=== PATIENT | male | born 1980 | race Caucasian/White ===

== ENCOUNTER → 2018-12-16 08:41 | Outpatient (CLI) | payer OTHER, SELFPAY ==
[2018-12-19 03:07] LABS: QNTFERON TB Mitogen Value > 10.00 IU/mL (.); QNTFERON TB Nil Value 0.07 IU/mL (.); QNTFERON TB1+ Ag Value 0.05 IU/mL (.); QNTFERON TB2+ Ag Value 0.06 IU/mL (.)
[2018-12-21 09:11] LABS: QNTIFERON TB Positive Criteria Negative (Negative)
--- OUTSIDE RECORDS SUMMARY | 2019-02-17 04:53 | XMS RPT_ITS ---
:1980 Author Organization [facility] Care Team Providers Name Role Phone Vellanki, Evelyn Attending Unavailable Vellanki, Evelyn Referring Unavailable Arana, Singh Primary Care Unavailable EMMA BENAVIDEZ (ELECTROMEDICAL EQUIPMENT TECHNICIAN) Attending Unavailable LEACH, JESUS K Attending Unavailable OSIRIS DANIELLE Referring Unavailable JAGDEEP IVAN (OD) Attending Unavailable LEACH, JESUS K Referring Unavailable MEFJAGDEEP LOPEZ (OD) Attending Unavailable MEFJAGDEEP LOEPZ (OD) Referring Unavailable Vellanki, Evelyn Admitting Unavailable Vellanki, Evelyn Attending Unavailable Arana, Christopher Primary Care Unavailable Arana, Christopher Consulting Unavailable Arana, Christopher Primary Care Unavailable Vellanki, Evelyn Admitting Unavailable Vellanki, Evelyn Attending Unavailable Arana, Christopher Consulting Unavailable Furness, Dominic T Attending Unavailable Arana, Christopher Primary Care Unavailable Furness, Dominic T Attending Unavailable Arana, Christopher Primary Care Unavailable Vellanki, Evelyn Admitting Unavailable Vellanki, Evelyn Attending Unavailable Arana, Christopher Primary Care Unavailable Arana, Christopher Consulting Unavailable Wood, Augustina L Admitting Unavailable Wood, Augustina L Attending Unavailable Arana, Christopher Primary Care Unavailable Wood, Augustina L Admitting Unavailable Wood, Augustina L Attending Unavailable Arana, Christopher Primary Care Unavailable Wood, Augustina L Admitting Unavailable Augustina Steen L Attending Unavailable Arana, Dane Primary Care Unavailable Velkatherine, Evelyn Admitting Unavailable Elochay Evelyn Attending Unavailable Sumit, Dane Primary Care Unavailable Arana, Dane Admitting Unavailable Arana, Dane Attending Unavailable Arana, Dane Primary Care Unavailable PROBLEMS PROBLEMS DATE TYPE CONDITION / CODE ATTENDING STATUS SOURCE 12/16/2018 Unknown 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 - Evelyn Hough Active [facility] arthritis with Hospital rheumatoid factor Repository of unspecified site without organ or systems involvement / M05.70(ICD-10) 12/16/2018 Unknown 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 / Repository Z79.899(ICD-10) 12/16/2018 Unknown I34.1 - Evelyn Hough Active [facility] Nonrheumatic Counts Include [address] [facility] mitral (valve) Hospital prolapse / Repository I34.1(ICD-10) 12/16/2018 Unknown I26.99 - Other Evelyn Hough Active [facility] pulmonary embolism Community without acute cor Hospital pulmonale / Repository I26.99(ICD-10) 12/16/2018 Unknown Z86.718 - Personal Evelyn Hough Active [facility] history of other Community venous thrombosis Hospital and embolism / Repository Z86.718(ICD-10) 12/16/2018 Unknown K76.0 - Fatty Evelyn Hough Active [facility] (change of) liver, Community not elsewhere Hospital classified / Repository K76.0(ICD-10) PROCEDURES PROCEDURES No Procedure Records FoundRESULTS RESULTS QUANTIFERON TB-GOLD+ Collected: 12/16/2018 Status: F Source: [facility] TYPE CODE TESTS RESULT OUT OF RANGE REFERENCE UNITS LAB L3400.8025 . Normal QFT TB Comment GOLD Result Comment: The QuantiFERON-TB Gold Plus result is determined by subtracting the Nil value from either TB antigen (Ag) tube. The mitogen tube serves as a control for the test. LAB L3400.8035 . IU/mL Normal QFT TB1+ AG 0.05 [facility] LAB L3400.8045 . IU/mL Normal QFT TB2+ AG 0.06 [facility] LAB L3400.8055 . IU/mL Normal QFT NIL VALUE 0.07 LAB L3400.8065 . IU/mL Normal QFT MITOGEN > 10.00 [facility] LAB L3400.8075 Negative Normal QFT TB POS Negative CRIT Result Comment: The specimen received for QuantiFERON testing was incubated by the ordering institution. Specific procedures outlined in our Directory of Services and in the package insert for the QuantiFERON Gold (In Tube) test must be followed to enable for proper stimulation of cells for the production of interferon gamma. Performed at: [facility] [id number] Clinical Data Programmer: Anand Turner PhD, Phone: [phone] Performed By: #### L3400.8000 #### [facility] (refer to report for specific site) refer to report for address and phone number PT/INR POC ORDER Collected: 12/09/2018 Status: F Source: [facility] 1:04 PM [facility] REPOSITORY TYPE CODE TESTS RESULT OUT OF RANGE REFERENCE UNITS LAB CD:[id number] 673(LOINC) Normal Collected PT/INR POC Order Performed By: #### [id number] #### [facility] POC Subsection [facility] [place] [address] PT/INR CAPILLARY Collected: 12/09/2018 Status: F Source: [facility] 1:04 PM [facility] REPOSITORY TYPE CODE TESTS RESULT OUT OF RANGE REFERENCE UNITS LAB [id number](LO 8.0-11.0 second(s) INC) High PT POC 24.0 LAB [id number](LO 1.0-1.2 INC) High INR POC 2.1 Result Comment: Source Capillary Performed By: #### [id number] #### [facility] POC Subsection [facility] [place] [address] CBC W/ AUTO DIFF Collected: 11/19/2018 Status: F Source: [facility] 3:18 PM [facility] REPOSITORY TYPE CODE TESTS RESULT OUT OF RANGE REFERENCE UNITS LAB [id number](L 3.6-11.0 E3/mcL OINC) Normal WBC 4.9 LAB [id number](L 3.90-6.10 E6/mcL OINC) Normal RBC 5.13 LAB [id number](L 13.5-18.0 G/DL OINC) Normal Hgb 15.6 LAB 40224485(L 42.0-52.0 % OINC) Normal Hct 45.3 LAB 05061685(L 11.5-14.5 % OINC) Normal RDW 12.8 LAB 71958812(L 27.0-31.0 pg OINC) Normal MCH 30.4 LAB 42713911(L 33.0-37.0 G/DL OINC) Normal MCHC 34.4 LAB 63879354(L 78.0-100.0 fL OINC) Normal MCV 88.4 LAB 74018372(L 7.4-11.0 fL OINC) Normal MPV 8.5 LAB 23236294(L 130-400 E3/mcL OINC) Normal Platelet 226 Performed By: #### [id number] #### [facility] Lerma[employer] [address] [place], [place] [id number] AUTO DIFF Collected: 11/19/2018 Status: F Source: [facility] 3:18 PM [facility] REPOSITORY Order Comment: Order Added by Discern Expert. TYPE CODE TESTS RESULT OUT OF RANGE REFERENCE UNITS LAB [id number](L 37.0-75.0 % OINC) Normal Neutro Auto 47.4 LAB 05801687(L 20.0-55.0 % OINC) Normal Lymph Auto 43.3 LAB 52429513(L 0.0-10.0 % OINC) Normal [place] Auto 6.7 LAB 45607727(L 0.0-11.0 % OINC) Normal Eos Auto 2.0 LAB 80215039(L 0.0-2.0 % OINC) Normal Basophil Auto 0.6 LAB 69326785(L 1.4-6.5 E3/mcL OINC) Normal Neutro 2.3 Absolute LAB 23764396(L 1.2-3.4 E3/mcL OINC) Normal Lymph Absolute 2.1 LAB 89538609(L 0.0-0.7 E3/mcL OINC) Normal [place] Absolute 0.3 LAB 88941604(L 0.0-0.7 E3/mcL OINC) Normal Eos Absolute 0.1 LAB 14021172(L 0.0-0.2 E3/mcL OINC) Normal Basophil 0.0 Absolute Performed By: #### [id number] #### OMID RemHemo [facility] [place] [address] CMP Collected: 11/19/2018 Status: F Source: [facility] 3:18 PM [facility] REPOSITORY TYPE CODE TESTS RESULT OUT OF RANGE REFERENCE UNITS LAB 83647745(L 70-99 mg/dL OINC) Glucose Normal Lvl 90 LAB 95495214(L 6-23 mg/dL OINC) BUN Normal 16 LAB 9741816(LO 0.5-1.3 mg/dL INC) Normal Creatinine 1.0 LAB 81009717(L 8.6-10.3 mg/dL OINC) Calcium Normal Lvl 9.8 LAB 75177212(L 136-145 mEq/L OINC) Sodium Normal Lvl 139 LAB 66915931(L 3.5-5.3 mEq/L OINC) Normal Potassium Lvl 3.9 LAB 90997794(L 98-107 mEq/L OINC) Chloride Normal 105 LAB 90148665(L 21.0-32.0 mEq/L OINC) CO2 Normal 29.0 LAB 30488736(L 33-120 Int._Unit/ OINC) L Alk Phos Normal 66 LAB 94092472(L 0.00-1.20 mg/dL OINC) Bili Normal Total 0.93 LAB 07243472(L 3.4-5.0 gm/dL OINC) Albumin Normal Lvl 4.9 LAB 24356444(L 6.4-8.2 gm/dL OINC) Total Normal Protein 6.6 LAB 35164535(L 10-52 Int._Unit/ OINC) High L ALT 66 LAB 19998884(L 9-39 Int._Unit/ OINC) L AST Normal 32 LAB 41143592(L 5.4-30.0 ratio OINC) Normal BUN/Creat Ratio 16.0 LAB 87297007(L 10-20 mEq/L OINC) Low AGAP 9 LAB 34730904(L 2.0-4.0 G/DL OINC) Globulin Normal 2.0 LAB 56311238(L 1.1-1.9 ratio OINC) High A/G Ratio 2.9 Performed By: #### [id number] #### OM[facility] [employer] [address] [place] [address] EGFR Collected: 11/19/2018 Status: F Source: [facility] 3:18 PM [facility] REPOSITORY Order Comment: Order added by Discern Expert. TYPE CODE TESTS RESULT OUT OF RANGE REFERENCE UNITS LAB 81763471(LO mL/min/1.73 INC) m2 Normal eGFR >60 LAB 58153524(LO mL/min/1.73 INC) m2 Normal eGFR AA >60 Performed By: #### [id number] #### [facility] [employer] [address] [place] [address] PT/INR POC ORDER Collected: 11/11/2018 Status: F Source: [facility] 1:[address] [facility] REPOSITORY TYPE CODE TESTS RESULT OUT OF RANGE REFERENCE UNITS LAB CD:[id number] 673(LOINC) Normal Collected PT/INR POC Order Performed By: #### [id number] #### [facility] POC Subsection [address] [place] [address] PT/INR CAPILLARY Collected: 11/11/2018 Status: F Source: [facility] 1:[address] [facility] REPOSITORY TYPE CODE TESTS RESULT OUT OF RANGE REFERENCE UNITS LAB [id number](LO 8.0-11.0 second(s) INC) High PT POC 28.0 LAB 86120433(LO 1.0-1.2 INC) High INR POC 2.4 Result Comment: Source Capillary Performed By: #### [id number] #### [facility] POC Subsection [address] [place] [address] PT/INR CAPILLARY Collected: 10/28/2018 Status: F Source: [facility] 1:13 PM [facility] REPOSITORY TYPE CODE TESTS RESULT OUT OF RANGE REFERENCE UNITS LAB [id number](LO 8.0-11.0 second(s) INC) High PT POC 41.0 LAB [id number](LO 1.0-1.2 INC) High INR POC 3.6 Result Comment: Source Capillary Performed By: #### [id number] #### OM[facility] POC Subsection [address] [place] [address] PT/INR POC ORDER Collected: 10/28/2018 Status: F Source: [facility] 1:08 PM [facility] REPOSITORY TYPE CODE TESTS RESULT OUT OF RANGE REFERENCE UNITS LAB CD:[id number] 673(LOINC) Normal Collected PT/INR POC Order Performed By: #### [id number] #### OM[facility] POC Subsection [address] [place] [address] [place] [address] [place] THYROID Observed: 10/21/2018 Status: F Source: [facility] 3:59 PM [facility] REPOSITORY Exam Date/Time: 10/21/2018 16:12 EST Reason for Exam: DYPHAGIA;Dysphagia Report STUDY: US Thyroid; 10/21/2018 4:12 pm INDICATION: Dysphagia. COMPARISON: None. ACCESSION NUMBER(S): [id number] ORDERING CLINICIAN: Augustina Steen TECHNIQUE: Grayscale and color Doppler ultrasound of the thyroid. FINDINGS: RIGHT LOBE: Measured at 4.1 x 1.2 x 1.3 cm in the longitudinal, AP, and transverse dimensions. LEFT LOBE: Measured at 4.2 x 1.1 x 1.5 cm in the longitudinal, AP, and transverse dimensions. ISTHMUS: Measured at 0.2 cm in AP dimension. No cervical adenopathy. IMPRESSION: Unremarkable sonographic appearance of the thyroid, no focal nodule. FINAL REPORT Dictated: 10/21/2018 4:32 pm Mora Gonzales MD Signed (Electronic Signature): 10/21/2018 4:32 pm Signed by: Mora Gonzales MD Technologist: ITALIA PT/INR POC ORDER Collected: 09/30/2018 Status: F Source: [facility] 1:09 PM [facility] REPOSITORY TYPE CODE TESTS RESULT OUT OF RANGE REFERENCE UNITS LAB CD:[id number] 673(LOINC) Normal Collected PT/INR POC Order Performed By: #### [id number] #### OM[facility] POC Subsection [address] [place] [address] PT/INR CAPILLARY Collected: 09/30/2018 Status: F Source: [facility] 1:09 PM [facility] REPOSITORY TYPE CODE TESTS RESULT OUT OF RANGE REFERENCE UNITS LAB [id number](LO 8.0-11.0 second(s) INC) High PT POC 33.0 LAB [id number](LO 1.0-1.2 INC) High INR POC 2.9 Result Comment: Source Capillary Performed By: #### [id number] #### [facility] POC Subsection [address] [place] [address] PT/INR CAPILLARY Collected: 09/16/2018 Status: F Source: [facility] 1:01 PM [facility] REPOSITORY TYPE CODE TESTS RESULT OUT OF RANGE REFERENCE UNITS LAB [id number](LO 8.0-11.0 second(s) INC) High PT POC 42.0 LAB 26589776(LO 1.0-1.2 INC) High INR POC 3.7 Result Comment: Source Capillary Performed By: #### [id number] #### OM[facility] POC Subsection [address] [place] [address] PT/INR POC ORDER Collected: 09/16/2018 Status: F Source: [facility] 12:58 PM [facility] REPOSITORY TYPE CODE TESTS RESULT OUT OF RANGE REFERENCE UNITS LAB CD:[id number] 673(LOINC) Normal Collected PT/INR POC Order Performed By: #### [id number] #### OM[facility] POC Subsection [address] [place], [place] [address] PT/INR CAPILLARY Collected: 08/19/2018 Status: F Source: [facility] 12:51 PM [facility] REPOSITORY TYPE CODE TESTS RESULT OUT OF RANGE REFERENCE UNITS LAB [id number](LO 8.0-11.0 second(s) INC) High PT POC 30.0 LAB 85593032(LO 1.0-1.2 INC) High INR POC 2.6 Result Comment: Source Capillary Performed By: #### [id number] #### OMID POC Subsection [address] [place] [address] PT/INR POC ORDER Collected: 08/19/2018 Status: F Source: [facility] 12:47 PM [facility] REPOSITORY TYPE CODE TESTS RESULT OUT OF RANGE REFERENCE UNITS LAB CD:[id number] 673(LOINC) Normal Collected PT/INR POC Order Performed By: #### [id number] #### OM[facility] POC Subsection [address] [place], [place] [address] PROGRESS Observed: 08/19/2018 Status: COMPLETED Source: [facility] 10:46 AM [facility] REPOSITORY HNO ID: [id number] Author: Jagdeep Perez) Karen Service: (none) Author Type: NEWSPAPER CORRESPONDENT Type: Progress Notes Filed: 08/19/2018 10:47 AM Note Text: ASSESSMENT/PLAN: 1. 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 Systane Balance Artificial tears, 1 drop, three times a day, Both eyes. Jagdeep Ivan, OD I have confirmed and edited as necessary the relevant ophthalmic history, review of systems, surgical history, and ophthalmological examination findings as obtained by the ophthalmic technical staff. I have seen and examined Mahesh Prieto. I have discussed the examination findings, diagnosis, and treatment options with Mahesh Prieto and/or his family. I have also reviewed and agree with the assessment and plan as stated above and agree with all its relevant components. I gave the patient the opportunity to ask questions about the findings, diagnosis, and treatment options. CBC W/ AUTO DIFF Collected: 07/16/2018 Status: F Source: [facility] 10:45 AM [facility] REPOSITORY TYPE CODE TESTS RESULT OUT OF RANGE REFERENCE UNITS LAB [id number](L 3.6-11.0 E3/mcL OINC) Normal WBC 5.0 LAB 83703568(L 3.90-6.10 E6/mcL OINC) Normal RBC 5.23 LAB 07070291(L 13.5-18.0 G/DL OINC) Normal Hgb 16.2 LAB 41639383(L 42.0-52.0 % OINC) Normal Hct 46.4 LAB 17083616(L 11.5-14.5 % OINC) Normal RDW 12.8 LAB 48072622(L 27.0-31.0 pg OINC) High MCH 31.1 LAB 79318837(L 33.0-37.0 G/DL OINC) Normal MCHC 34.9 LAB 00567317(L 78.0-100.0 fL OINC) Normal MCV 88.9 LAB 37560841(L 7.4-11.0 fL OINC) Normal MPV 8.4 LAB 43476446(L 130-400 E3/mcL OINC) Normal Platelet 209 Performed By: #### [id number] #### OMID RemHemo [address] [place] [address] AUTO DIFF Collected: 07/16/2018 Status: F Source: [facility] 10:45 AM [facility] REPOSITORY Order Comment: Order Added by Discern Expert. TYPE CODE TESTS RESULT OUT OF RANGE REFERENCE UNITS LAB [id number](L 37.0-75.0 % OINC) Normal Neutro Auto 41.5 LAB 57315393(L 20.0-55.0 % OINC) Normal Lymph Auto 47.2 LAB 03931062(L 0.0-10.0 % OINC) Normal [place] Auto 8.8 LAB 40989390(L 0.0-11.0 % OINC) Normal Eos Auto 1.9 LAB 67539675(L 0.0-2.0 % OINC) Normal Basophil Auto 0.6 LAB 92029136(L 1.4-6.5 E3/mcL OINC) Normal Neutro 2.1 Absolute LAB 39104729(L 1.2-3.4 E3/mcL OINC) Normal Lymph Absolute 2.3 LAB 18668217(L 0.0-0.7 E3/mcL OINC) Normal [place] Absolute 0.4 LAB 26772942(L 0.0-0.7 E3/mcL OINC) Normal Eos Absolute 0.1 LAB 55709596(L 0.0-0.2 E3/mcL OINC) Normal Basophil 0.0 Absolute Performed By: #### [id number] #### OMID RemHemo [facility] [place] [address] PT Collected: 07/16/2018 Status: F Source: [facility] 10:45 AM [facility] REPOSITORY TYPE CODE TESTS RESULT OUT OF RANGE REFERENCE UNITS LAB [id number](LO 1.0-1.2 INC) High INR 1.6 Result Comment: INR Recommended Therapeuptic Ranges: Prophylaxis/treatment of DVT and PE?2.0-3.0 Prevention of systemic embolism?.2.0-3.0 Mechanical prosthetic values?2.5-3.5 CRITICAL VALUES?.>4.0 LAB 21097055(LOINC) 11.6-14.6 second(s) High PT 18.1 Performed By: #### [id number] #### OMID Hematology Automated Subsection [address] [id number] CMP Collected: 07/16/2018 Status: F Source: [facility] 10:45 AM [facility] REPOSITORY TYPE CODE TESTS RESULT OUT OF RANGE REFERENCE UNITS LAB 19949443(L 70-99 mg/dL OINC) High Glucose Lvl 102 LAB 53900301(L 7-18 mg/dL OINC) High BUN 21 LAB 4139751(LO 0.6-1.3 mg/dL INC) Normal Creatinine 1.0 LAB 83659493(L 8.4-10.2 mg/dL OINC) Calcium Normal Lvl 9.4 LAB 62008074(L 136-145 mEq/L OINC) Sodium Normal Lvl 137 LAB 97801594(L 3.5-5.1 mEq/L OINC) Normal Potassium Lvl 4.3 LAB 88374859(L 98-107 mEq/L OINC) Chloride Normal 101 LAB 91601229(L 24.0-30.0 mEq/L OINC) CO2 Normal 25.1 LAB 51481062(L 42-121 Int._Unit/ OINC) L Alk Phos Normal 58 LAB 69424946(L 0.2-1.0 mg/dL OINC) High Bili Total 1.4 LAB 40248357(L 3.2-5.0 G/DL OINC) Albumin Normal Lvl 4.8 LAB 07592149(L 6.4-8.3 G/DL OINC) Total Normal Protein 7.1 LAB 44308790(L 10-40 Int._Unit/ OINC) High L ALT 86 LAB 84499390(L 10-42 Int._Unit/ OINC) L AST Normal 36 LAB 92152493(L 5.4-30.0 ratio OINC) Normal BUN/Creat Ratio 21.0 LAB 14127076(L 2.0-4.0 G/DL OINC) Globulin Normal 2.3 LAB 95663876(L 1.1-1.9 ratio OINC) High A/G Ratio 2.1 Performed By: #### [id number] #### OMID RemChem [facility] [place] [id number] EGFR Collected: 07/16/2018 Status: F Source: [facility] 10:45 AM [facility] REPOSITORY Order Comment: Order added by Discern Expert. TYPE CODE TESTS RESULT OUT OF RANGE REFERENCE UNITS LAB [id number](LO mL/min/1.73 INC) m2 Normal eGFR >60 LAB 45908045(LO mL/min/1.73 INC) m2 Normal eGFR AA >60 Performed By: #### [id number] #### OM[facility] [employer] [address] [place] [address] PT/INR CAPILLARY Collected: 06/24/2018 Status: F Source: [facility] 3:14 PM [facility] REPOSITORY TYPE CODE TESTS RESULT OUT OF RANGE REFERENCE UNITS LAB 12120153(LO 8.0-11.0 second(s) INC) High PT POC 16.0 LAB 57402974(LO 1.0-1.2 INC) High INR POC 1.4 Result Comment: Source Capillary Performed By: #### [id number] #### OM[facility] POC Subsection [address] [place] [address] PT/INR POC ORDER Collected: 06/24/2018 Status: F Source: [facility] 3:13 PM [facility] REPOSITORY TYPE CODE TESTS RESULT OUT OF RANGE REFERENCE UNITS LAB CD:[id number] 673(LOINC) Normal Collected PT/INR POC Order Performed By: #### [id number] #### [facility] POC Subsection [address] [place] [address] PT/INR CAPILLARY Collected: 05/21/2018 Status: F Source: [facility] 10:01 AM [facility] REPOSITORY TYPE CODE TESTS RESULT OUT OF RANGE REFERENCE UNITS LAB [id number](LO 8.0-11.0 second(s) INC) High PT POC 19.0 LAB 09570462(LO 1.0-1.2 INC) High INR POC 1.6 Result Comment: Source Capillary Performed By: #### [id number] #### OM[facility] POC Subsection [address] [place] [address] PT/INR POC ORDER Collected: 05/21/2018 Status: F Source: [facility] 9:58 AM [facility] REPOSITORY TYPE CODE TESTS RESULT OUT OF RANGE REFERENCE UNITS LAB CD:[id number] 673(LOINC) Normal Collected PT/INR POC Order Performed By: #### [id number] #### [facility] POC Subsection [address] [place] [address] PROGRESS Observed: 05/20/2018 Status: COMPLETED Source: [facility] 4:33 PM [facility] REPOSITORY HNO ID: [id number] Author: Jagdeep MohrTyrese) Karen Service: (none) Author Type: NEWSPAPER CORRESPONDENT Type: Progress Notes Filed: 05/20/2018 4:33 PM Note Text: ASSESSMENT/PLAN: 1. Meibomian gland dysfunction (MGD) of upper and lower lids of both eyes - ICD9: 373.00, ICD10: H02.89 (primary diagnosis) Current Ophthalmic Meds bacitracin ophthalmic ophthalmic ointment (Taking) Use 1 application in both eyes once each week. Systane Balance Artificial tears, 1 drop, four times a day, Both eyes. Jagdeep Ivan, TYRESE I have confirmed and edited as necessary the relevant ophthalmic history, review of systems, surgical history, and ophthalmological examination findings as obtained by the ophthalmic technical staff. I have seen and examined Mahesh Prieto. I have discussed the examination findings, diagnosis, and treatment options with Mahesh Prieto and/or his family. I have also reviewed and agree with the assessment and plan as stated above and agree with all its relevant components. I gave the patient the opportunity to ask questions about the findings, diagnosis, and treatment options. PROGRESS Observed: 05/20/2018 Status: COMPLETED Source: [facility] 4:27 PM [facility] REPOSITORY O ID: [id number] Author: Jagdeep (Tyrese) Karen Service: (none) Author Type: NEWSPAPER CORRESPONDENT Type: Progress Notes Filed: 05/20/2018 4:33 PM Note Text: ASSESSMENT/PLAN: 1. Meibomian gland dysfunction (MGD) of upper and lower lids of both eyes - ICD9: 373.00, ICD10: H02.89 Current Ophthalmic Meds bacitracin ophthalmic ophthalmic ointment (Taking) Use 1 application in both eyes once each week. Systane Balance Artificial tears, 1 drop, three times a day, Both eyes. Jagdeep Ivan, TYRESE I have confirmed and edited as necessary the relevant ophthalmic history, review of systems, surgical history, and ophthalmological examination findings as obtained by the ophthalmic technical staff. I have seen and examined Mahesh Prieto. I have discussed the examination findings, diagnosis, and treatment options with Mahesh Prieto and/or his family. I have also reviewed and agree with the assessment and plan as stated above and agree with all its relevant components. I gave the patient the opportunity to ask questions about the findings, diagnosis, and treatment options. PT Collected: 04/22/2018 Status: F Source: [facility] 1:55 PM [facility] REPOSITORY TYPE CODE TESTS RESULT OUT OF RANGE REFERENCE UNITS LAB [id number](LO 1.0-1.2 INC) High INR 1.9 Result Comment: INR Recommended Therapeuptic Ranges: Prophylaxis/treatment of DVT and PE?2.0-3.0 Prevention of systemic embolism?.2.0-3.0 Mechanical prosthetic values?2.5-3.5 CRITICAL VALUES?.>4.0 LAB 52934808(LOINC) 11.6-14.6 second(s) High PT 20.2 Performed By: #### [id number] #### [facility] Hematology Automated Subsection [address] [place] [address] CBC W/ AUTO DIFF Collected: 04/22/2018 Status: F Source: [facility] 1:[address] [facility] REPOSITORY TYPE CODE TESTS RESULT OUT OF RANGE REFERENCE UNITS LAB 42170134(L 3.6-11.0 E3/mcL OINC) Normal WBC 4.7 LAB 86496554(L 3.90-6.10 E6/mcL OINC) Normal RBC 5.20 LAB 14517176(L 13.5-18.0 G/DL OINC) Normal Hgb 16.1 LAB 97327596(L 42.0-52.0 % OINC) Normal Hct 45.5 LAB 93659348(L 11.5-14.5 % OINC) Normal RDW 12.9 LAB 11505697(L 27.0-31.0 pg OINC) Normal MCH 30.9 LAB 52178548(L 33.0-37.0 G/DL OINC) Normal MCHC 35.3 LAB 04392170(L 78.0-100.0 fL OINC) Normal MCV 87.6 LAB 63930238(L 7.4-11.0 fL OINC) Normal MPV 9.0 LAB 70726231(L 130-400 E3/mcL OINC) Normal Platelet 225 Performed By: #### [id number] #### OM[facility] RemHemo [facility] [id number] AUTO DIFF Collected: 04/22/2018 Status: F Source: [facility] 1:[address] [facility] REPOSITORY Order Comment: Order Added by Discern Expert. TYPE CODE TESTS RESULT OUT OF RANGE REFERENCE UNITS LAB [id number](L 37.0-75.0 % OINC) Normal Neutro Auto 42.6 LAB 97494493(L 20.0-55.0 % OINC) Normal Lymph Auto 48.6 LAB 54904485(L 0.0-10.0 % OINC) Normal [place] Auto 6.7 LAB 50271149(L 0.0-11.0 % OINC) Normal Eos Auto 1.6 LAB 16136234(L 0.0-2.0 % OINC) Normal Basophil Auto 0.5 LAB 84845536(L 1.4-6.5 E3/mcL OINC) Normal Neutro 2.0 Absolute LAB 87974820(L 1.2-3.4 E3/mcL OINC) Normal Lymph Absolute 2.3 LAB 25275944(L 0.0-0.7 E3/mcL OINC) Normal [place] Absolute 0.3 LAB 30200920(L 0.0-0.7 E3/mcL OINC) Normal Eos Absolute 0.1 LAB 46058792(L 0.0-0.2 E3/mcL OINC) Normal Basophil 0.0 Absolute Performed By: #### [id number] #### OMID Maria GuadalupeHemo [facility] [place] [id number] CMP Collected: 04/22/2018 Status: F Source: [facility] 1:[address] [facility] REPOSITORY TYPE CODE TESTS RESULT OUT OF RANGE REFERENCE UNITS LAB [id number](L 70-99 mg/dL OINC) Glucose Normal Lvl 90 LAB 51272711(L 8.4-10.2 mg/dL OINC) Calcium Normal Lvl 9.3 LAB 01745161(L 136-145 mEq/L OINC) Low Sodium Lvl 134 LAB 23841419(L 3.5-5.1 mEq/L OINC) Normal Potassium Lvl 3.8 LAB 89876853(L 98-107 mEq/L OINC) Chloride Normal 101 LAB 34604203(L 24.0-30.0 mEq/L OINC) CO2 Normal 25.7 LAB 87467417(L 7-18 mg/dL OINC) BUN Normal 16 LAB 9105197(LO 0.6-1.3 mg/dL INC) Normal Creatinine 1.0 LAB 01696713(L 42-121 Int._Unit/ OINC) L Alk Phos Normal 57 LAB 43118522(L 0.2-1.0 mg/dL OINC) High Bili Total 1.2 LAB 60363540(L 3.2-5.0 G/DL OINC) Albumin Normal Lvl 5.0 LAB 03569301(L 6.4-8.3 G/DL OINC) Total Normal Protein 6.7 LAB 95369762(L 10-40 Int._Unit/ OINC) High L ALT 71 LAB 78684860(L 10-42 Int._Unit/ OINC) L AST Normal 36 LAB 45874698(L 5.4-30.0 ratio OINC) Normal BUN/Creat Ratio 16.0 LAB 56520233(L 2.0-4.0 G/DL OINC) Low Globulin 1.7 LAB 34305316(L 1.1-1.9 ratio OINC) High A/G Ratio 2.9 Performed By: #### [id number] #### OMID [facility] [address] [place] [address] EGFR Collected: 04/22/2018 Status: F Source: [facility] 1:54 PM [facility] REPOSITORY Order Comment: Order added by Discern Expert. TYPE CODE TESTS RESULT OUT OF RANGE REFERENCE UNITS LAB 89335453(LO mL/min/1.73 INC) m2 Normal eGFR >60 LAB 46596706(LO mL/min/1.73 INC) m2 Normal eGFR AA >60 Performed By: #### [id number] #### OMID RemCalibrus [address] [place] 1313405 PROGRESS Observed: 04/08/2018 Status: COMPLETED Source: [facility] 2:29 PM [facility] REPOSITORY HNO ID: [id number] Author: Jesus Leach Service: (none) Author Type: Physician Type: Progress Notes Filed: 04/08/2018 2:36 PM Note Text: ASSESSMENT/PLAN: 1. Meibomian gland dysfunction (MGD) of upper and lower lids of both eyes - ICD9: 373.00, ICD10: H02.89 (primary diagnosis) Begin: Current Ophthalmic Meds bacitracin ophthalmic ophthalmic ointment Use 1 application in both eyes once each week. Ice packs as needed onto both eyes. 2. Rheumatoid arthritis involving multiple sites, unspecified rheumatoid factor presence (HCC) - ICD9: 714.0, ICD10: M06.[address] Hough, Clay P[employer]on Loader. - OCT MACULA CIRRUS OU (BOTH EYES) 3. Factor V Leiden mutation (HCC) - ICD9: 289.81, ICD10: D68.51 Continue care with primary care physician. Jesus Leach MD I have confirmed and edited as necessary the relevant ophthalmic history, review of systems, surgical history, and ophthalmological examination findings as obtained by the ophthalmic technical staff. I have seen and examined Mahesh Topete Adonisjuventino. I have discussed the examination findings, diagnosis, and treatment options with Mahesh Topete Adonisjuventino and/or his family. I have also reviewed and agree with the assessment and plan as stated above and agree with all its relevant components. I gave the patient the opportunity to ask questions about the findings, diagnosis, and treatment options. PT/INR CAPILLARY Collected: 03/13/2018 Status: F Source: [facility] 1:16 PM [facility] REPOSITORY TYPE CODE TESTS RESULT OUT OF RANGE REFERENCE UNITS LAB [id number](LO 8.0-11.0 second(s) INC) High PT POC 22.0 LAB 33361822(LO 1.0-1.2 INC) High INR POC 1.8 Result Comment: Source Capillary Performed By: #### [id number] #### OMID POC Subsection [facility] [place] [address] PT/INR POC ORDER Collected: 03/13/2018 Status: F Source: [facility] 1:13 PM [facility] REPOSITORY TYPE CODE TESTS RESULT OUT OF RANGE REFERENCE UNITS LAB CD:[id number] 673(LOINC) Normal Collected PT/INR POC Order Performed By: #### [id number] #### OMID POC Subsection [address] [place] [address] CBC W/ AUTO DIFF Collected: 02/05/2018 Status: F Source: [facility] 1:[address] [facility] REPOSITORY TYPE CODE TESTS RESULT OUT OF RANGE REFERENCE UNITS LAB [id number](L 3.6-11.0 E3/mcL OINC) Normal WBC 4.9 LAB 84241162(L 3.90-6.10 E6/mcL OINC) Normal RBC 5.05 LAB 61997963(L 13.5-18.0 G/DL OINC) Normal Hgb 15.5 LAB 06982976(L 42.0-52.0 % OINC) Normal Hct 44.0 LAB 49810320(L 11.5-14.5 % OINC) Normal RDW 12.8 LAB 96321747(L 27.0-31.0 pg OINC) Normal MCH 30.6 LAB 11259659(L 33.0-37.0 G/DL OINC) Normal MCHC 35.2 LAB 23452294(L 78.0-100.0 fL OINC) Normal MCV 87.1 LAB 78865694(L 7.4-11.0 fL OINC) Normal MPV 8.3 LAB 71820426(L 130-400 E3/mcL OINC) Normal Platelet 216 Performed By: #### [id number] #### OMID RemHemo [address] [place] [address] AUTO DIFF Collected: 02/05/2018 Status: F Source: [facility] 1:[address] [facility] REPOSITORY Order Comment: Order Added by Discern Expert. TYPE CODE TESTS RESULT OUT OF RANGE REFERENCE UNITS LAB 05110810(L 37.0-75.0 % OINC) Normal Neutro Auto 45.2 LAB 82295794(L 20.0-55.0 % OINC) Normal Lymph Auto 46.3 LAB 21586201(L 0.0-10.0 % OINC) Normal [place] Auto 6.5 LAB 43622790(L 0.0-11.0 % OINC) Normal Eos Auto 1.5 LAB 05165254(L 0.0-2.0 % OINC) Normal Basophil Auto 0.5 LAB 83781345(L 1.4-6.5 E3/mcL OINC) Normal Neutro 2.2 Absolute LAB 02886812(L 1.2-3.4 E3/mcL OINC) Normal Lymph Absolute 2.3 LAB 56508216(L 0.0-0.7 E3/mcL OINC) Normal [place] Absolute 0.3 LAB 58117156(L 0.0-0.7 E3/mcL OINC) Normal Eos Absolute 0.1 LAB 94697868(L 0.0-0.2 E3/mcL OINC) Normal Basophil 0.0 Absolute Performed By: #### [id number] #### OMID RemHemo [address] [place] [address] PT Collected: 02/05/2018 Status: F Source: [facility] 1:[address] [facility] REPOSITORY TYPE CODE TESTS RESULT OUT OF RANGE REFERENCE UNITS LAB 19793970(LO 1.0-1.2 INC) High INR 3.1 Result Comment: INR Recommended Therapeuptic Ranges: Prophylaxis/treatment of DVT and PE?2.0-3.0 Prevention of systemic embolism?.2.0-3.0 Mechanical prosthetic values?2.5-3.5 CRITICAL VALUES?.>4.0 LAB 40526279(LOINC) 11.6-14.6 second(s) High PT 30.2 Performed By: #### [id number] #### OMID Hematology Automated Subsection [address] [place] [address] CMP Collected: 02/05/2018 Status: F Source: [facility] 1:[address] [facility] REPOSITORY TYPE CODE TESTS RESULT OUT OF RANGE REFERENCE UNITS LAB 92154708(L 70-99 mg/dL OINC) Glucose Normal Lvl 91 LAB 14570308(L 8.4-10.2 mg/dL OINC) Calcium Normal Lvl 9.5 LAB 93570832(L 136-145 mEq/L OINC) Sodium Normal Lvl 137 LAB 74146972(L 3.5-5.1 mEq/L OINC) Normal Potassium Lvl 4.0 LAB 53402227(L 98-107 mEq/L OINC) Chloride Normal 102 LAB 30055100(L 24.0-30.0 mEq/L OINC) CO2 Normal 26.8 LAB 49047406(L 7-18 mg/dL OINC) BUN Normal 15 LAB 4553788(LO 0.6-1.3 mg/dL INC) Normal Creatinine 1.0 LAB 04450380(L 42-121 Int._Unit/ OINC) L Alk Phos Normal 51 LAB 00462933(L 0.2-1.0 mg/dL OINC) Bili Normal Total 1.0 LAB 52405822(L 3.2-5.0 G/DL OINC) Albumin Normal Lvl 4.7 LAB 73892849(L 6.4-8.3 G/DL OINC) Total Normal Protein 6.9 LAB 10889204(L 10-40 Int._Unit/ OINC) High L ALT 56 LAB 41462111(L 10-42 Int._Unit/ OINC) L AST Normal 32 LAB 31805614(L 5.4-30.0 ratio OINC) Normal BUN/Creat Ratio 15.0 LAB 04419612(L 2.0-4.0 G/DL OINC) Globulin Normal 2.2 LAB 41101424(L 1.1-1.9 ratio OINC) High A/G Ratio 2.1 Performed By: #### [id number] #### OMID [facility] [address] [place] 1313405 EGFR Collected: 02/05/2018 Status: F Source: [facility] 1:01 PM [facility] REPOSITORY Order Comment: Order added by Discern Expert. TYPE CODE TESTS RESULT OUT OF RANGE REFERENCE UNITS LAB 02020988(LO mL/min/1.73 INC) m2 Normal eGFR >60 LAB 73662079(LO mL/min/1.73 INC) m2 Normal eGFR AA >60 Performed By: #### [id number] #### OMID RemChem [address] [place] [address] PROGRESS Observed: 01/10/2018 Status: COMPLETED Source: [facility] 11:42 AM [facility] REPOSITORY HNO ID: [id number] Author: Emma Benavidez Service: (none) Author Type: Nurse Practitioner Type: Progress Notes Filed: 01/10/2018 12:32 PM Note Text: Telemedicine Visit - Distance Health Virtual Visit Note Patient seen on [employer] Online platform. Location of patient: [place] History of Present Illness Mahesh Prieto is a 37 year old year old male who presents with exposure to influenza Both daughters diagnosed with influenza A today Patient has RA and takes Actemra Also on Coumadin for PE Ancillary Services Manager suggested patient receive prophylactic Tamiflu Current;y asymptomatic No fever/chills, body aches Symptoms include: Negative for Fever, Chills/Sweats, Cough, SOB, Wheezing, Nasal congestion, Rhinorrhea and Headache Oral intake: eating and drinking Tobacco use: No Second hand smoke exposure: No Recent exposure to strep:No Sick contacts: yes, Both daughter tested positive for influenza A Recent travel: Yes, [place] OTC meds/remedies that patient has tried: none. PAST MEDICAL HISTORY Diagnosis Date - Anxiety - DVT (deep venous thrombosis) (HCC) 12/02 - Factor V Leiden mutation (HCC) + FH - PE (pulmonary embolism) 12/02 on coumadin and aspirin - Pneumonia 2007 - Post herpetic neuralgia left thorax- was on neurontin. PAST SURGICAL HISTORY Procedure Laterality Date - HERNIA REPAIR HX 2002 - LAPAROSCOPIC CHOLEYCYSTECTOMY 10/28/2017 Cholecystectomy, lap FELTON - TONSILLECTOMY HX FAMILY HISTORY Problem Relation Age of Onset - hypothyroid [OTHER] Mother - Ischemic Heart Disease Father HTN, chol, DM2 - Factor V Leiden [OTHER] Father also sister Social History Marital status: Spouse name: Renee Years of education: 19 Number of children: 0 Occupational History Occupation Employer Comment [employer] Social History Main Topics Smoking status: Current Every Day Smoker Packs/day: 0.00 Years: 0.00 Comment: Occassional cigar Alcohol use: Yes Comment: Occassional Drug use: No Sexual activity: Yes Partners with: Female Current Outpatient Prescriptions: HYDROcodone-acetaminophen (NORCO) 5-325 mg per tablet Take 1 tablet by mouth every 6 hours as needed for Pain. ACTEMRA 162 mg/0.9 mL syrg TRANSDERM-SCOP 1 mg over 3 days predniSONE (DELTASONE) 10 mg tablet TAKE 1 TABLET BY MOUTH ONCE DAILY NEEDED - TAKE FOR 3 - 5 DAYS WITH A FLARE traMADol (ULTRAM) 50 mg tablet warfarin sodium(COUMADIN 5 MG TAB) Take one(1) tablet daily. multivitamins(DAILY MULTI-VITAMIN TAB) aspirin(ASPIR-81 81 MG TAB) Take one(1) tablet daily. No current facility-administered medications for this visit. ALLERGIES Allergen Reactions - Penicillins Swelling Video Exam (Examination performed via Video enabled technology) General appearance: Alert, oriented, pleasant, in NAD :Yes Ill appearing :No Lethargic appearing :No Eyes: Sclera clear :Yes Conjunctiva without erythema :Yes Ears: Tragus / outer ear tenderness by self palpation :No Oropharynx: normal, no erythema Frontal sinus tenderness by self palpation;No Maxillary sinus tenderness by self palpation :No Tender cervical adenopathy by self palpation :No Respiratory distress :No Coughing noted :No Audible wheezing noted :No ASSESSMENT/PLAN: 1. Exposure to influenza - ICD9: V01.79, ICD10: Z20.828 - Patient requesting to start Tamiflu for prophylaxis, medication side effects discussed - Instructed to call PCP Friday to make him aware and schedule follow up - Continue with handwashing and infection prevention precautions - OSELTAMIVIR 75 MG CAPSULE - Red flags discussed for need for in person care - All questions answered Emma Benavidez CNP We strongly encourage you to share the following record of today's visit with your primary care provider. This will help in providing you the best care. PT/INR CAPILLARY Collected: 01/02/2018 Status: F Source: [facility] 2:06 PM [facility] REPOSITORY TYPE CODE TESTS RESULT OUT OF RANGE REFERENCE UNITS LAB [id number](LO 8.0-11.0 second(s) INC) High PT POC 26.0 LAB [id number](LO 1.0-1.2 INC) High INR POC 2.3 Result Comment: Source Capillary Performed By: #### [id number] #### OMID POC Subsection [facility] [place] [address] PT/INR POC ORDER Collected: 01/02/2018 Status: F Source: [facility] 2:06 PM [facility] REPOSITORY TYPE CODE TESTS RESULT OUT OF RANGE REFERENCE UNITS LAB CD:[id number] 673(LOINC) Normal Collected PT/INR POC Order Performed By: #### [id number] #### OMID POC Subsection [facility] [place] [address] PT/INR POC Collected: 11/05/2017 Status: F Source: [facility] 4:30 PM [facility] REPOSITORY TYPE CODE TESTS RESULT OUT OF RANGE REFERENCE UNITS LAB [id number](LO 8.0-11.0 second(s) INC) High PT POC 25.0 LAB 92344588(LO 1.0-1.2 INC) High INR POC 2.1 Performed By: #### [id number] #### OMID POC Subsection [address] [place] [address] PT/INR POC ORDER Collected: 11/05/2017 Status: F Source: [facility] 4:27 PM [facility] REPOSITORY TYPE CODE TESTS RESULT OUT OF RANGE REFERENCE UNITS LAB CD:[id number] 673(LOINC) Normal Collected PT/INR POC Order Performed By: #### [id number] #### OMID POC Subsection [address] [place], [place] [address] PT/INR POC Collected: 10/21/2017 Status: F Source: [facility] 3:16 PM [facility] REPOSITORY TYPE CODE TESTS RESULT OUT OF RANGE REFERENCE UNITS LAB [id number](LO 8.0-11.0 second(s) INC) High PT POC 17.0 LAB [id number](LO 1.0-1.2 INC) High INR POC 1.5 Performed By: #### [id number] #### OMID POC Subsection [address] [place], [place] [address] PT/INR POC ORDER Collected: 10/21/2017 Status: F Source: [facility] 3:16 PM [facility] REPOSITORY TYPE CODE TESTS RESULT OUT OF RANGE REFERENCE UNITS LAB CD:[id number] 673(LOINC) Normal Collected PT/INR POC Order Performed By: #### [id number] #### OMID POC Subsection [address] [place] [address] PT Collected: 09/12/2017 Status: F Source: [facility] 1:50 PM [facility] REPOSITORY TYPE CODE TESTS RESULT OUT OF RANGE REFERENCE UNITS LAB [id number](LO 1.0-1.2 INC) High INR 2.2 Result Comment: INR Recommended Therapeuptic Ranges: Prophylaxis/treatment of DVT and PE?2.0-3.0 Prevention of systemic embolism?.2.0-3.0 Mechanical prosthetic values?2.5-3.5 CRITICAL VALUES?.>4.0 LAB [id number](LOINC) 11.6-14.6 second(s) High PT 24.0 Performed By: #### [id number] #### OMID Hematology Automated Subsection [facility] [place] [address] PT Collected: 08/20/2017 Status: F Source: [facility] 1:[address] [facility] REPOSITORY TYPE CODE TESTS RESULT OUT OF RANGE REFERENCE UNITS LAB [id number](LO 1.0-1.2 INC) High INR 2.3 Result Comment: INR Recommended Therapeuptic Ranges: Prophylaxis/treatment of DVT and PE?2.0-3.0 Prevention of systemic embolism?.2.0-3.0 Mechanical prosthetic values?2.5-3.5 CRITICAL VALUES?.>4.0 LAB 44151876(LOINC) 11.6-14.6 second(s) High PT 24.6 Performed By: #### [id number] #### OMID Hematology Automated Subsection [facility] [place] [address] PT Collected: 06/27/2017 Status: F Source: [facility] 3:[address] [facility] REPOSITORY TYPE CODE TESTS RESULT OUT OF RANGE REFERENCE UNITS LAB [id number](LO 1.0-1.2 INC) High INR 2.2 Result Comment: INR Recommended Therapeuptic Ranges: Prophylaxis/treatment of DVT and PE?2.0-3.0 Prevention of systemic embolism?.2.0-3.0 Mechanical prosthetic values?2.5-3.5 CRITICAL VALUES?.>4.0 LAB 73076682(LOINC) 11.6-14.6 second(s) High PT 23.4 Performed By: #### [id number] #### OMID Hematology Automated Subsection [facility] [place] [address] ALLERGIES ALLERGIES DATE TYPE / CODE NAME / CODE REACTION SEVERITY SOURCE 06/05/2010 Drug PENICILLINS SWELLING [facility] Class/05217 [address] [place] 1003(SNOMED Repository CT) Drug/721612 penicillin V Congregational 003(SNOMED [facility] CT) System Repository ENCOUNTERS ENCOUNTERS ADMIT/DISCHARGE ACCOUNT NUMBER ADMITTING ENCOUNTER LOCATION SOURCE CLASS 12/16/2018 [id number] Ambulatory [facility] ing:MTLAB Repository 11/19/2018/ [id number] Gianluca Ambulatory Congregational Cong[facility]ational 018 [facility] ing:[facility] Apparent System Repository 11/19/2018 [id number] Ambulatory [address] [place] [address] Repository 10/21/2018/ [id number] Augustina Steen Ambulatory Congregational Congregational 018 [facility] ing:[facility] Apparent System Repository 10/21/2018 [id number] Ambulatory [address] [place] [address] Repository 10/19/2018/ [id number] Augustina Steen Ambulatory Medical [facility] AssocRoom: Room 2 09/24/2018/ [id number] Augustina Steen Ambulatory [facility] Repository 08/19/2018/ [id number] Ambulatory [address] Repository 07/16/2018/ [id number] Gianluca Ambulatory Congregational Congregational 018 [facility] ing:.[facility] Apparent System Repository 07/16/2018 [id number] Ambulatory [address] [place] [address] Repository 06/19/2018/ [id number] Ambulatory Medical [facility] Repository 05/20/2018/ [id number] Ambulatory [address] [place] Repository 05/11/2018/ [id number] Ambulatory Medical [facility] Repository 04/22/2018/ [id number] Gianluc[address] ing:[facility] Repository 04/22/2018 [id number] Ambulatory [address] [place] [address] Repository 04/08/2018/ [id number] Ambulatory [address] Repository 02/05/2018/ [id number] Gianluca[address] ing:[facility] Repository 01/10/2018/ [id number] Ambulatory [address] Repository 06/27/2017 [id number] [facility] Repository PAYERS PAYERS ENCOUNTER GUARANTOR PAYER SUBSCRIBER SOURCE 12/16/2018 MAHESH Mejia [id number] Insurance:MEDICAL STIMPERTDOB: [address] [id number] [facility] [address]Qji: 419) Number: Repository [phone] (HP) [id number] Date:2478-89-50[address] [address]AG: 12/16/2018 Secondary MAHESH Mejia Insurance:STANDARD STIMPERTDOB: [facility] Number: [id number] Hospital [id number] Repository Date:2018-12-16 [address], [place] [address]SE: 12/16/2018 Tertiary NOT GIVENUNK [place] Insurance:SELF PAY [facility] Number: Effective Repository Date:2018-12-16 11/19/2018 MAHESH [facility] STIMPERTDOB: Insurance:Medical STIMPERTDOB: [facility] [id number] Repository [address] Number: [address] [place] [address] [id number] [place] [address] [id number]: Date:Plan Name:Health [id number]: (HP) (HP) 11/19/2018 [facility] Insurance:CommercialP STIMPERTDOB: [facility] Number: [id number] Repository [id number] [address] Date:Plan Name:Health [address] [place] [address] [id number]: (HP) 11/19/2018 [facility] Insurance:Medical STIMPERTDOB: [facility] [id number] Repository Number: [facility] [id number] [address] [place] [address] Date:Plan Name:Health [id number]: (HP) 10/21/2018 [facility] STIMPERTDOB: Insurance:Medical STIMPERTDOB: [facility] [id number] Repository [address] Number: [address] [place] [address] [id number] [address], [place] [id number]: Date:Plan Name:Health [id number]: (HP) (HP) 10/21/2018 [facility] Insurance:CommercialP STIMPERTDOB: [facility] Number: [id number] Repository [id number] [address] Date:Plan Name:[address] [id number]: (HP) 07/16/2018 [facility] STIMPERTDOB: Insurance:Medical STIMPERTDOB: [facility] [id number] Repository [address] Number: [facility] [address] [place] [address] [id number] [address], [place] [id number]: Date:Plan Name:Health [id number]: (HP) (HP) 07/16/2018 [facility] Insurance:CommercialP STIMPERTDOB: [facility] Number: [id number] Repository [id number] [address] Date:Plan Name:[facility] [id number]: () 07/16/2018 [facility] Insurance:Medical STIMPERTDOB: [facility] [id number] Repository Number: [facility] [id number] [address] [place] [address] Date:Plan Name:Health [id number]: () 05/11/2018 MAHESH Topete Primary MAHESH Yang STIMPERTDOB: Insurance:1500 STIMPERTDOB: [facility] [id number] [address] Number: Effective [address] Repository [address] [place] [address] Date:2018-05-[address] [place] [address] [id number]: [id number] [id number]: Name:CD:[id number] O () [address], [place] ()Tel: [phone]: (wp) [phone] 05/11/2018 Secondary MAHESH Yang Insurance:1500 STIMPERTDOB: [facility] [id number] System Number: Effective [address] Repository Date:2018-05-11 - [address] [place] [address] [id number]: Name:CD:[id number] [address] ()Tel: (377) [place] [address]NK: [phone] (WP) 04/22/2018 MAHESH Topete Primary MAHESH Yang STIMPERTDOB: Insurance:Medical STIMPERTDOB: [facility] Number: [id number] System [address] Effective [address] Repository [address] [place] [address] Date:2018-04-[address] [place] [address] [id number]: [id number]: Name:[facility] (HP) [address], [place] ()Tel: [phone]: (wp) [phone] 04/22/2018 Secondary MAHESH Yang Insurance:STANDARD [facility] [id number] System Effective [address] Repository Date:2018-04-[address] [place] [address] [id number] [id number]: Name:CD:[id number] [address]OSQIXVD[address] [place] ()Tel: [phone]: (wp) [phone] 04/22/2018 MAHESH Topete [facility] STIMPERTDOB: Insurance:Medical STIMPERTDOB: [facility] [id number] Repository [address] Number: [address] [place] [address] [id number] [address], [place] [id number]: Date:Plan Name:Health [id number]: () () 04/22/2018 Secondary MAHESH Topete [place] Insurance:CommercialP STIMPERTDOB: [facility] Number: [id number] Repository [id number] Date:Plan Name:[address] [id number]: () 04/22/2018 Tertiary [facility] Insurance:Medical STIMPERTDOB: [facility] [id number] Repository Number: [facility] [address] [id number] [address] [place] [address] Date:Plan Name:Health [id number]: () 02/05/2018 MAHESH Topete [employer] STIMPERTDOB: Insurance:Medical STIMPERTDOB[facility]: [id number] System [address] Repository [address] [place] [address] Date:2018-02-[address] [place] [address] [id number]: [id number]: Name:Medical MutualPO (HP) [address] [place] [address] ()Tel: [phone]: (wp) [phone] 02/05/2018 Secondary MAHESH Yang Insurance:STANDARD STIMPERTDOB: [facility] LIFEPolicy Number: [id number] System Effective [address] Repository Date:2018-02-[address] [place] [address] [id number]: Name:[id number] [address] [place] (HP)Tel: [phone]: (wp) [phone] 06/27/2017 MAHESH Topete [facility] MAHESH Yang STIMPERTDOB: Insurance:Medical STIMPERTDOB: [facility] MutualPolicy Number: [id number] System [facility] Effective [facility] [address] [place] [address] Date:2017-06-[address] [place] [address] [id number]: [id number]: Name:Medical MutualPO (HP) [address] [place] [address] ()Tel: [phone]: (WP) [phone] 06/27/2017 Secondary MAHESH Yang Insurance:STANDARD STIMPERTDOB: [facility] LIFEPolicy Number: [id number] System Effective [address] Repository Date:2017-06-[address] [place] [address] [id number]: Name:[id number] [address] [place] (HP)Tel: [phone]: (wp) [phone]
== END ==
PROVIDERS: Family Provider Family Medicine; PCP Family Medicine; Referring Provider Internal Medicine Rheumatology; Visit Provider Internal Medicine Rheumatology
DX: M05.70 Rheumatoid arthritis with rheumatoid factor of unspecified site without organ or systems involvement (principal); Z79.899 Other long term (current) drug therapy; I34.1 Nonrheumatic mitral (valve) prolapse; I26.99 Other pulmonary embolism without acute cor pulmonale; Z86.718 Personal history of other venous thrombosis and embolism; K76.0 Fatty (change of) liver, not elsewhere classified
CPT/HCPCS: 36415; 86480